=== PATIENT | female | born 1965 | race Two or more races ===

== ENCOUNTER 2017-02-20 20:15 | Emergency (ER) | payer OTHER ==
[~2017-02-20] VITALS: Ht 165.1 cm; Wt 72.6 kg
[2017-02-20 21:00] LABS: Basophils # (auto) 0 uL; Basophils % (auto) 0.4 % (0.0-2.0); Eosinophils # (auto) 0.1 uL; Eosinophils % (auto) 2.5 % (0.0-7.0); Hematocrit 41.3 % (36.0-46.0); Hemoglobin 13.7 g/dL (12.2-16.2); Lymphocytes # (auto) 1.6 uL; Lymphocytes % (auto) 31.3 % (10.0-50.0); Mean Corpuscular Hemoglobin 30.1 pg (28.0-32.0); Mean Corpuscular Hgb Conc. 33.1 g/dL (32.0-36.0); Mean Platelet Volume 7.7 fL (7.4-10.4); Monocytes # (auto) 0.5 uL; Neutrophils # (auto) 2.8 uL; Neutrophils % (auto) 56.8 % (37.0-80.0); Platelet Count (auto) 241 10^3/uL (140-450)
[2017-02-20 21:09] LABS: Albumin 4.3 g/dL (3.4-5.0); Anion Gap 7 (5-15); Aspartate Aminotransferase 42 U/L (15-37); BUN/Creatinine Ratio 21.4; Blood Urea Nitrogen 18 mg/dL (7-18); Calcium 8.7 mg/dL (8.5-10.1); Carbon Dioxide 29 mmol/L (21-32); Chloride 107 mmol/L (98-107); GFR African American 92 mL/min; GFR Non-African American 76 mL/min; Glucose 103 mg/dL (74-106); Magnesium 2.5 mg/dL (1.6-2.6); Potassium 3.6 mmol/L (3.5-5.1); Sodium 143 mmol/L (136-145)
[2017-02-20 21:14] LABS: Alkaline Phosphatase 130 U/L (45-117); Bilirubin, Total 0.3 mg/dL (0.2-1.0); Total Protein 7.9 g/dL (6.4-8.2)
[2017-02-20] MEDS ORDERED: hydrALAZINE HCL 20 MG/ML VL IV ONE (21:15)
[2017-02-20 21:24] LABS: Urine RBC None Seen /hpf (0 - 4)
[2017-02-20 21:38] LABS: Urine Bilirubin Negative (Negative); Urine Blood Negative /uL (Negative); Urine Color Yellow (Yellow); Urine Glucose Normal (Normal); Urine Ketone Negative (Negative); Urine Nitrite Negative (Negative); Urine Squamous Epithelial Cell FEW /hpf (<5); Urine Urobilinogen Normal (Negative); Urine pH 7.5 (5.0-8.0)
[2017-02-20] MEDS ORDERED: NITROGLYCERIN 0.4 MG SL TAB SL ONE (21:45)
[2017-02-20] MEDS ORDERED: ONDANSETRON HCL 4 MG/2 ML VIAL IV ONE (22:30)
[2017-02-20] MEDS ORDERED: ASPirin 81 mg TAB PO ONE (22:30)
[2017-02-20] MEDS ORDERED: MORPHINE SULF INJ 2 MG/ML SYRINGE 1ML IV ONE (22:30)
[2017-02-20] MEDS ORDERED: MORPHINE SULFATE 4 MG/ML SYRG IV ONE (23:15)
[2017-02-21 03:06] VITALS: BP 160/97
== END 2017-02-21 03:26 | disposition short-term general hospital (02) ==
LOC: EDBD 20:15 → ER 20:22 → EDBD 20:22 → ER 02-21 03:26
DX: R07.89 Other chest pain (principal); I10 Essential (primary) hypertension; G35 Multiple sclerosis; Z90.710 Acquired absence of both cervix and uterus; Z90.49 Acquired absence of other specified parts of digestive tract; Z88.1 Allergy status to other antibiotic agents; Z91.041 Radiographic dye allergy status
CPT/HCPCS: 36415; 70450; 71010; 80053; 81001; 83735; 84484; 85025; 93005; 96374; 96375; 99285; J0360; J2270; J2405

== ENCOUNTER 2025-06-11 15:49 | Emergency (ER) | payer OTHER ==
[~2025-06-11] VITALS: Ht 172.7 cm; Wt 75.0 kg
--- NOTE | 2025-06-11 16:16 | ED.PDOC ---
GI ASSESSMENT HPI Comments 59-year-old female with history of MS, mi status post PTCA, diverticular disease, hypertension and dyslipidemia brought in by EMS from [place] [facility] where she works complaining of abdominal pain that started suddenly after she ate lunch. She localizes the pain to be epigastric area, also reports pain in her chest radiating to the jaw, associated with nausea. She states the pain is sharp and severe causing her to double over and become lightheaded. She denies any fever, vomiting, diarrhea, constipation, urinary symptoms or sick contacts. Chief Complaint: Abdominal Pain Time Seen by MD: 15:55 Primary Care Provider: Tonny Reviewed Notes: Medications, Allergies Allergies: Coded Allergies: Azithromycin (Verified Allergy, Unknown, 02/20/17) Diphenhydramine (Verified Allergy, Unknown, 02/20/17) Iodine (Verified Allergy, Unknown, 02/20/17) Information Source: Patient, Emergency Med Personnel Mode of Arrival: EMS Timing: Minutes Duration: Since onset Prehospital treatment: 12 Lead EKG, Director Of Housing Quality: Cramping Vomitus: None Stool: Normal Severity: Moderate Recent: None Recent Hx of: None Pain Location: Periumbilical Associated sign and symptoms: Nausea, Abdominal Pain Past Medical History PAST MEDICAL HISTORY: CAD, High Lipids, HTN, [place] Past Medical History (Other): Diverticular disease Surgical History: Cholecystectomy, , Hysterectomy, PTCA MICROBIOLOGY QUALITY CONTROL TECHNICIAN History: No Pertinent MICROBIOLOGY QUALITY CONTROL TECHNICIAN History Family History Family History: Reviewed,noncontributory to illness Social History Smoker: Non-Smoker Alcohol: Rarely Drugs: Denies Drug Use Lives In: Home Constitutional: denies: chills, diaphoresis, fatigue, fever, malaise, sweats, weakness, others EENTM: denies: blurred vision, double vision, ear bleeding, ear discharge, ear drainage, ear pain, ear ringing, eye pain, eye redness, hearing loss, mouth pain, mouth swelling, nasal discharge, nose bleeding, nose congestion, nose pain, photophobia, tearing, throat pain, throat swelling, voice changes, others Respiratory: denies: cough, hemoptysis, orthopnea, SOB at rest, shortness of breath, SOB with excertion, stridor, wheezing, others Cardiovascular: denies: chest pain, dizzy spells, diaphoresis, Dyspnea on exertion, edema, irregular heart beat, left arm pain, lightheadedness, palpitations, PND, syncope, others Gastrointestinal: reports: abdominal pain, nausea; denies: abdomen distended, blood streaked bowels, constipated, diarrhea, dysphagia, difficulty swallowing, hematemesis, melena, poor appetite, poor fluid intake, rectal bleeding, rectal pain, vomiting, others Genitourinary: denies: abnormal vagina bleeding, burning, dyspareunia, dysuria, flank pain, frequency, hematuria, incontinence, pain, , vagina discharge, urgency, others Neurological: denies: dizziness, fainting, headache, left sided numbness, left sided weakness, numbness, paresthesia, pre-existing deficit, right sided numbness, right sided weakness, seizure, speech problems, tingling, tremors, weakness, others Musculoskeletal: denies: back pain, gout, joint pain, joint swelling, muscle pain, muscle stiffness, neck pain, others Integumetry: denies: bruises, change in color, change in hair/nails, dryness, laceration, lesions, lumps, rash, wounds, others Allergic/Immunocompromised: denies: Difficulty Healing, Frequent Infections, Hives, Itching, others Hematologic/Lymphatic: denies: anemia, blood clots, easy bleeding, easy bruising, swollen glands, others Endocrine: denies: excessive hunger, excessive sweating, excessive thirst, excessive urination, flushing, intolerance to cold, intolerance to heat, unexplained weight gain, unexplained weight loss, others Psychiatric: denies: anxiety, bipolar disorder, depression, hopeless, panic disorder, schizophrenia, sleepless, suicidal, others All Other Systems: Reviewed and Negative Physical Exam General Appearance: Mild Distress, Obese HEENT: Other (Pupils and face symmetric. Moist mucous membranes.) Neck: Full Range of Motion, Normal Inspection Respiratory: Lungs Clear, No Accessory Muscle Use, No Respiratory Distress, Normal Breath Sounds Cardiovascular: No Edema, No JVD, Regular Rate/Rhythm Breast Exam: Deferred Gastrointestinal: Epigastric, Soft, Tenderness Genitalia: Deferred Pelvic: Deferred Rectal: Deferred Extremities: Normal inspection, Normal range of motion, Non-tender, No pedal edema Neurologic: Alert (Oriented x4), Normal Affect, Normal Mood, Other (Ambulatory) Cerebellar Function: NOT DONE Reflexes: NOT DONE Skin: Dry, Normal Color, Warm Lymphatic: NOT DONE EKG EKG : Comments Sinus rhythm, rate 91, normal SD and QRS intervals, QTC 477, left axis deviation, normal QRS, nonspecific T change. Was a procedure done? Was a procedure done?: No GI differential Dx Differential Diagnosis: Appendicitis, Constipation, Diverticular disease, Gastritis/PUD, Gastroenteritis, Hepatitis, Pancreatitis, UTI, Food Poisoning, Bacterial, Viral, Impaction, Ischemic Bowel, Stress Ulcer, Kidney Stone X-Ray, Labs, Meds, VS Vital Signs Date Time Temp Pulse Resp B/P (MAP) Pulse Ox O2 Delivery O2 Flow Rate FiO2 06/11/25 17:38 89 19 156/99 (118) 97 06/11/25 17:37 89 19 156/99 06/11/25 16:42 87 18 146/96 (113) 99 06/11/25 16:42 87 18 99 Room Air 06/11/25 16:39 87 18 146/96 06/11/25 15:56 91 06/11/25 15:50 98.7 93 17 164/113 98 98.7 Lab Test 06/11/25 19:21 06/11/25 17:20 06/11/25 16:19 06/11/25 16:16 Range/Units Troponin I High Sensitivity 15 15 13 </=34 ng/L White Blood Count 7.0 4.4-10.8 10^3/uL Red Blood Count 4.92 4.0-5.20 10^6/uL Hemoglobin 15.3 12.2-16.2 g/dL Hematocrit 44.8 36.0-46.0 % Mean Corpuscular Volume 91.2 80.0-100.0 fL Mean Corpuscular Hemoglobin 31.1 28.0-32.0 pg Mean Corpuscular Hemoglobin Concent 34.1 32.0-36.0 g/dL Red Cell Distribution Width 12.9 11.8-14.3 % Platelet Count 223 140-450 10^3/uL Mean Platelet Volume 8.2 6.9-10.8 fL Neutrophils (%) (Auto) 66.6 37.0-80.0 % Lymphocytes (%) (Auto) 22.2 10.0-50.0 % Monocytes (%) (Auto) 9.5 0.0-12.0 % Eosinophils (%) (Auto) 1.2 0.0-7.0 % Basophils (%) (Auto) 0.5 0.0-2.0 % Neutrophils # (Auto) 4.6 1.6-8.6 10 ^3/uL Lymphocytes # (Auto) 1.5 0.4-5.4 10 ^3/uL Monocytes # (Auto) 0.7 0-1.3 10 ^3/uL Eosinophils # (Auto) 0.1 0-0.8 10 ^3/uL Basophils # (Auto) 0 0-0.2 10 ^3/uL Nucleated Red Blood Cells 0.1 % Sodium Level 142 136-145 mmol/L Potassium Level 3.9 3.5-5.1 mmol/L Chloride Level 107 98-107 mmol/L Carbon Dioxide Level 23 20-31 mmol/L Anion Gap 12 5-15 Blood Urea Nitrogen 22 9-23 mg/dL Creatinine 0.97 0.550-1.02 mg/dL Glomerular Filtration Rate Calc 68 >90 mL/min BUN/Creatinine Ratio 22.7 H 10.0-20.0 Serum Glucose 87 74-106 mg/dL Calcium Level 9.7 8.7-10.4 mg/dL Total Bilirubin 0.6 0.2-1.0 mg/dL Aspartate Amino Transferase (AST) 41 H 13-40 U/L Alanine Aminotransferase (ALT) 51 H 7-40 U/L Alkaline Phosphatase 113 46-116 U/L B-Type Natriuretic Peptide 13.54 0-100 pg/mL Total Protein 7.9 5.7-8.2 g/dL Albumin 5.1 H 3.2-4.8 g/dL Lipase 110 H 12-53 U/L Urine Color Light-yellow Yellow Urine Clarity Clear Clear Urine pH 5.0 5.0-9.0 Urine Specific [place] 1.009 1.001-1.035 Urine Protein Negative Negative Urine Ketones 1+ H Negative Urine Blood Negative Negative /uL Urine Nitrite Negative Negative Urine Bilirubin Negative Negative Urine Urobilinogen Normal Negative mg/dL Urine Leukocyte Esterase Negative Negative /uL Urine RBC 1 0 - 4 /hpf Urine Microscopic WBC < 1 0-5 /HPF Urine Squamous Epithelial Cells Few <5 /hpf Urine Bacteria None seen None Seen /hpf Urine Mucus Few None Seen Urine Glucose Normal Normal mg/dL Current Medications Medications (Trade) Dose Ordered Sig/Grecia Route Start Time Stop Time Status Last Admin Sodium Chloride 1,000 ml @ 1,000 mls/hr Q1H ONCE IV 8/14/25 16:15 06/11/25 17:14 DC 06/11/25 16:39 Ondansetron HCl (Zofran) 4 mg ONCE ONCE IV 06/11/25 16:15 06/11/25 16:16 DC 06/11/25 16:38 Morphine Sulfate 4 mg ONCE ONCE IV 06/11/25 16:15 06/11/25 16:16 DC 06/11/25 16:39 Dicyclomine HCl (Bentyl Injection) 20 mg ONCE ONCE IM 06/11/25 16:15 06/11/25 16:16 DC 06/11/25 16:38 PROCEDURE(s): CXRP - CHEST PORTABLE REASON: cp ORDER NUMBER(s): [id number], ACCESSION NUMBER(s): [id number] CHEST RADIOGRAPH Indication: cp Technique: Single frontal view of the chest was obtained COMPARISON: None FINDINGS: Lines and Tubes: None Lungs: Clear Pleura: No effusion. No pneumothorax. Cardiomediastinal contours: Unremarkable Bones: Unremarkable IMPRESSION: 1. No acute disease. EDURE(s): ABPL - CT AB PEL WO CON-NO ORAL OR IV REASON: mid abd pain, n ORDER NUMBER(s): [id number], ACCESSION NUMBER(s): [id number] Exam: CT CT AB PEL WO CON-NO ORAL OR IV History: mid abd pain, n Comparison Study: None TECHNIQUE: Multidetector CT of the abdomen and pelvis was performed from lung bases to pubic symphysis. Imaging was performed without IV contrast. Axial, coronal, and sagittal multiplanar reformats were obtained from the axial data set by the technologist. RADIATION DOSE: DLP 510.21 mGy.cm; CTDI vol 9.62 mGy. Findings: Limited evaluation given noncontrast technique. Lungs: The lung bases are clear. Heart: No cardiomegaly or pericardial effusion. Severe coronary atherosclerosis versus stents. Liver: Unremarkable. Gallbladder: Cholecystectomy. Spleen: Unremarkable Pancreas: Unremarkable Adrenals: Unremarkable Kidneys: Unremarkable GI tract: Diverticulosis without evidence of acute diverticulitis. : Right ovarian cyst. Unremarkable. Vasculature: Mild aortoiliac atherosclerosis. Lymphadenopathy: Absent Peritoneum: No ascites Musculoskeletal: Mild multilevel degenerative changes of the thoracolumbar spine. Soft tissues: Bilateral breast implants. Unremarkable Impression: 1. Limited evaluation given noncontrast technique. 2. No acute abdominopelvic abnormalities. 3. Diverticulosis without evidence of acute diverticulitis. X-Ray, Labs, Meds, VS Comment 59-year-old female with history of MS, mi status post PTCA, diverticular disease, hypertension and dyslipidemia brought in by EMS from [place] [facility] where she works complaining of severe upper abdominal pain that started suddenly after she ate lunch. Vitals remarkable for BP 164/113 Exam remarkable for epigastric/supraumbilical tenderness to palpation Rhythm strip independently interpreted by me: Sinus rhythm, rate 93, no ectopy. Chest x-ray one view no acute disease CT abdomen and pelvis without contrast diverticulosis without diverticulitis, otherwise no acute disease CBC unremarkable, CMP remarkable for AST 41, ALT 51, lipase 110, UA 1+ ketones, otherwise unremarkable Patient treated with the following in the ED: 1 L 0.9 normal saline IV bolus, Zofran 4 mg IV, morphine 4 mg IV, Bentyl 20 mg IM On re-evaluation, patient states pain has improved. Vitals were stable. Plan is to transfer the patient to [place] for pain control and GI evaluation Case discussed with Dr. Pandya at [facility], who will arrange for the patient to be transferred to [place]. Authorization [id number] Time of 1ST Reevaluation: 16:25 Reevaluation 1ST: Unchanged Patient Education/Counseling: Diagnosis, Treatment, Need For Follow Up Family Education/Counseling: No Family Present SEPSIS Sepsis Screen Date sepsis recognized/suspect: Jun 11, 2025 Time Sepsis recognized/suspect: 1605 Recent Procedure: No On Antibiotic Therapy: No Respiratory Rate >20: No Heart Rate >90: Yes Temp<36 C (96.8 F) or >38.3 C: No SBP <90 or MAP <65 mmHG: No New Acute Mental Status Change: No Is the patient on CPAP, BIPAP,: No SEPSIS EXCLUSION NOTE: Sepsis Exclusion Note: Patient presents with SIRS criteria, but the SIRS response is attributed to [pain ], not a suspected infection. Sepsis bundle is not initiated at this time, due to this reason. Further management will focus on the treatment of the above condition (s). Physician Orders Chest Portable (06/11/25 16:01) Ct Ab Pel Wo Con-No Oral Or Iv (06/11/25 16:01) Electrocardigram (06/11/25 17:01) Electrocardigram (06/11/25 19:01) Saline Lock (06/11/25 16:21) Vital Signs Date Time Temp Pulse Resp B/P (MAP) Pulse Ox O2 Delivery O2 Flow Rate FiO2 06/11/25 17:38 89 19 156/99 (118) 97 06/11/25 17:37 89 19 156/99 06/11/25 16:42 87 18 146/96 (113) 99 06/11/25 16:42 87 18 99 Room Air 06/11/25 16:39 87 18 146/96 06/11/25 15:56 91 06/11/25 15:50 98.7 93 17 164/113 98 98.7 Laboratory Tests Test 06/11/25 16:19 White Blood Count 7.0 10^3/uL (4.4-10.8) Medications Medications Dose Ordered Sig/Grecia Route Start Time Stop Time Status Last Admin Dose Admin Dicyclomine HCl 20 mg ONCE ONCE IM 06/11/25 16:15 06/11/25 16:16 DC 06/11/25 16:38 Morphine Sulfate 4 mg ONCE ONCE IV 06/11/25 16:15 06/11/25 16:16 DC 06/11/25 16:39 Ondansetron HCl 4 mg ONCE ONCE IV 06/11/25 16:15 06/11/25 16:16 DC 06/11/25 16:38 Sodium Chloride 1,000 ml @ 1,000 mls/hr Q1H ONCE IV 06/11/25 16:15 06/11/25 17:14 DC 06/11/25 16:39 Departure 1 Departure Time of Disposition: 19:49 Impression: Primary Impression: Acute pancreatitis Disposition: 02 SHORT TERM HOSPITAL Admit to: Med Surg Condition: Guarded Critical Care Note Critical Care Time?: No Stability Stability form required: No Heart Score Heart Score: Heart Score Response (Comments) Value History Slightly Suspicious 0 EKG Repolarization Disturb 1 Age 45-64 1 Risk Factors >3 or Hx ASHD 2 Troponin Normal limit 0 Total 4 I personally scribed for JOSE MANUEL HEADLEY MD ([email or web address]) on 06/11/25 at 16:16. Electronically submitted by Lawrence Diallo ([email or web address]). JOSE MANUEL HEADLEY MD Jun 11, 2025 16:16
[2025-06-11] MEDS: DICYCLOMINE HCL (10MG/ML) 2 ML AMPULE IM ONE (16:38)
[2025-06-11] MEDS: ONDANSETRON HCL 4 MG/2 ML VIAL IV ONE (16:38)
[2025-06-11] MEDS: SODIUM CHLORIDE 0.9% 1,000 ML IV ONE (16:39)
[2025-06-11] MEDS: MORPHINE SULFATE 4 MG/ML SYR/VIAL IV ONE (16:39)
[2025-06-11 16:40] LABS: Urine Protein, UAD Negative (Negative)
[2025-06-11 16:43] LABS: Hematocrit 44.8 % (36.0-46.0); Hemoglobin 15.3 g/dL (12.2-16.2); Mean Corpuscular Hemoglobin 31.1 pg (28.0-32.0); Mean Corpuscular Volume 91.2 fL (80.0-100.0); Nucleated Red Blood Cells % 0.1 %
--- NOTE | 2025-06-11 16:53 | DVH ---
CHEST RADIOGRAPH Indication: cp Technique: Single frontal view of the chest was obtained COMPARISON: None FINDINGS: Lines and Tubes: None Lungs: Clear Pleura: No effusion. No pneumothorax. Cardiomediastinal contours: Unremarkable Bones: Unremarkable IMPRESSION: 1. No acute disease.
[2025-06-11 16:55] LABS: Alanine Aminotransferase 51 U/L (7-40); Albumin 5.1 g/dL (3.2-4.8); Alkaline Phosphatase 113 U/L (46-116); Anion Gap 12 (5-15); BUN/Creatinine Ratio 22.7 (10.0-20.0); Bilirubin, Total 0.6 mg/dL (0.2-1.0); Blood Urea Nitrogen 22 mg/dL (9-23); Calcium 9.7 mg/dL (8.7-10.4); Carbon Dioxide 23 mmol/L (20-31); Chloride 107 mmol/L (98-107); Glucose 87 mg/dL (74-106); Lipase 110 U/L (12-53); Potassium 3.9 mmol/L (3.5-5.1); Sodium 142 mmol/L (136-145); Total Protein 7.9 g/dL (5.7-8.2)
--- NOTE | 2025-06-11 17:17 | DVH ---
Exam: CT CT AB PEL WO CON-NO ORAL OR IV History: mid abd pain, n Comparison Study: None TECHNIQUE: Multidetector CT of the abdomen and pelvis was performed from lung bases to pubic symphysi s. Imaging was performed without IV contrast. Axial, coronal, and sagittal multiplanar reformats were obtained from the axial data set by the technologist. RADIATION DOSE: DLP 510.21 mGy.cm; CTDI vol 9.62 mGy. Findings: Limited evaluation given noncontrast technique. Lungs: The lung bases are clear. Heart: No cardiomegaly or pericardial effusion. Severe coronary atherosclerosis versus stents. Liver: Unremarkable. Gallbladder: Cholecystectomy. Spleen: Unremarkable Pancreas: Unremarkable Adrenals: Unremarkable Kidneys: Unremarkable GI tract: Diverticulosis without evidence of acute diverticulitis. : Right ovarian cyst. Unremarkable. Vasculature: Mild aortoiliac atherosclerosis. Lymphadenopathy: Absent Peritoneum: No ascites Musculoskeletal: Mild multilevel degenerative changes of the thoracolumbar spine. Soft tissues: Bilateral breast implants. Unremarkable Impression: 1. Limited evaluation given noncontrast technique. 2. No acute abdominopelvic abnormalities. 3. Diverticulosis without evidence of acute diverticulitis.
--- NOTE | 2025-06-11 20:07 | ECG ---
[facility] Test Date: 2025-06-11 Test Time: 15:56:05 Pat Name: FARRAH VARNER Department: ED Room: Gender: F [place]: HODAN HARVEYB: 1965 Requested By: JOSE MANUEL JEFFERY Order Number: [id number] Reading MD: Camacho Roldan Measurements Intervals [place] Rate: 91 P: 32 CO: 168 QRS: -15 QRSD: 99 T: -25 QT: 387 QTc: 477 Interpretive Statements Sinus rhythm Probable left atrial enlargement Borderline left axis deviation Borderline T abnormalities, diffuse leads Baseline wander in lead(s) V5 Electronically Signed On 06-15-2025 22:44:51 PDT by Camacho Roldan Please click the below link to view image of tracing.
[2025-06-11] MEDS: METOPROLOL TARTRATE 1MG/1ML-5ML VIAL IV ONE (21:17)
[2025-06-11 23:37] VITALS: BP 167/104; PULSE 73; RESP 16; TEMP 97.7; O2SAT 97
== END 2025-06-11 20:32 | disposition short-term general hospital (02) ==
LOC: EDBD 15:49 → ER 15:49
DX: K85.90 Acute pancreatitis without necrosis or infection, unspecified (principal); I10 Essential (primary) hypertension; E78.5 Hyperlipidemia, unspecified; I25.10 Atherosclerotic heart disease of native coronary artery without angina pectoris; Z90.49 Acquired absence of other specified parts of digestive tract; Z79.899 Other long term (current) drug therapy; Z90.710 Acquired absence of both cervix and uterus; Z88.1 Allergy status to other antibiotic agents; Z88.8 Allergy status to other drugs, medicaments and biological substances
CPT/HCPCS: 36415; 71045; 74176; 80053; 81001; 83690; 83880; 84484; 85025; 93005; 96361; 96372; 96374; 96375; 99285; J0500; J2270; J2405; J7030